=== PATIENT | female | born 1975 | race African-American/Black ===

== ENCOUNTER 2020-12-03 09:13 | Emergency (ER) | payer OTHER ==
[~2020-12-03] VITALS: Ht 162.6 cm; Wt 61.2 kg
[2020-12-03 09:14] VITALS: BP 137/97
[2020-12-03] MEDS ORDERED: CEFDINIR300 MG PO (09:20)
[2020-12-03] MEDS ORDERED: METRONIDAZOLE500 M4 PO (09:20)
[2020-12-03] MEDS ORDERED: BENTYL 10 MG CA10 MG PO (09:20)
[2020-12-03] MEDS ORDERED: FLEXERIL PO (10:14)
== END 2020-12-03 10:40 | disposition home or self-care (01) ==
LOC: ER 09:13
DX: M79.605 Pain in left leg (principal); R10.9 Unspecified abdominal pain; M54.2 Cervicalgia; M79.601 Pain in right arm; Z88.1 Allergy status to other antibiotic agents; Z88.0 Allergy status to penicillin; Z90.710 Acquired absence of both cervix and uterus; Z90.49 Acquired absence of other specified parts of digestive tract; W17.89XA Other fall from one level to another, initial encounter; Y93.89 Activity, other specified; Y92.69 Other specified industrial and construction area as the place of occurrence of the external cause; Y99.9 Unspecified external cause status